=== PATIENT | male | born 1950 | race Two or more races ===

== ENCOUNTER 2018-01-09 06:32 | Inpatient (IN) | payer MEDICARE, MEDICAID ==
[2018-01-09] VITALS (7 sets, daily range): BP systolic 125–175; BP diastolic 65–85
[~2018-01-09] VITALS: Ht 172.7 cm; Wt 79.8 kg
--- NOTE | 2018-01-09 10:20 | NUR ---
REVENUE INVESTIGATOR OPENING NOTES. PT DIRECT ADMIT. PT A&0X3 BULGARIAN AND BURKINAN SPEAKING. PT WITH O2 VIA NC AT 2LPM WITH SAO2 OF 98%. PT LUNGS AUSCULTATED WITH LOWER LOBES DIMINISHED WITH RHONCHI. ORTHOPNEA NOTED AND SOB WITH EXERTION. PT REPORTS R LATERAL EPIGASTRIC PAIN, NON PLEURITIC, NO PAIN ON PALPATION. PT WITH IVC AT L AC INTACT AND SALINE FLUSH PATENT. PT SKIN INTACT. [place] DOCUMENTATION CHARTED. PT BED IN LOWEST LOCKED POSITION WITH HANDRAILSX2 AND CALL RICHARDSON WITHIN REACH. PT BRIEFED ON TODAY'S POC AND IS WITHOUT CONCERN OR COMPLAINT AT THIS TIME.
--- NOTE | 2018-01-09 11:00 | NUR ---
GRAIN OILSEED OR PASTURE FARM MANAGER NOTES. PT TO BRING IN MED RECON.
--- NOTE | 2018-01-09 11:00 | NUR ---
PERCIO MOON. MRSA SWAB COMPLETE.
[2018-01-09] MEDS ORDERED: FUROSEMIDE 40 MG/4 ML VIAL IV SCH (11:30)
[2018-01-09] MEDS ORDERED: hydrALAZINE HCL IV 20 MG VIAL IV PRN (12:00)
[2018-01-09] MEDS: PANTOPRAZOLE 40 MG TABLET.DR PO SCH (12:24)
[2018-01-09] MEDS: AMLODIPINE BESYLATE 5 MG TABLET PO SCH (12:24)
[2018-01-09] MEDS: NITROGLYCERIN 30 GM TUBE TP SCH ×2 (12:25→21:41)
[2018-01-09 12:57] LABS: BASOPHILS % (AUTO) 0.3 % (0.0-2.0); EOSINOPHILS % (AUTO) 1.1 % (0.0-6.0); HEMATOCRIT 39 % (39-51); HEMOGLOBIN 13.4 g/dL (13.5-17.5); LYMPHOCYTES # (AUTO) 2.5 /CMM (0.8-4.8); LYMPHOCYTES % (AUTO) 22.3 % (20.0-44.0); MEAN CORPUSCULAR HGB CONC 34 g/dl (31.0-36.0); MEAN CORPUSCULAR VOLUME 83 fL (80-96); MONOCYTES % (AUTO) 8.8 % (2.0-12.0); NEUTROPHILS # (AUTO) 7.5 /CMM (1.8-8.9); NEUTROPHILS % (AUTO) 67.5 % (43.0-81.0); PLATELET COUNT (AUTO) 172 /CMM (150-450); RDW COEFFICIENT OF VARIATION 13.7 (11.5-15.0); RED BLOOD CELL COUNT(AUTO) 4.73 MIL/uL (4.5-6.0); WHITE BLOOD COUNT (AUTO) 11.1 K/uL (4.3-11.0)
[2018-01-09 13:18] LABS: ALBUMIN 3.9 g/dL (3.4-5.0); BILIRUBIN,DIRECT 0.3 mg/dL (0.0-0.2); BILIRUBIN,TOTAL 1.3 mg/dL (0.2-1.0); CALCIUM, SERUM 8.6 mg/dL (8.5-10.1); CREATININE 1.2 mg/dL (0.6-1.3); MAGNESIUM 2.3 mg/dL (1.8-2.4); POTASSIUM 4.4 mmol/L (3.5-5.1); TOTAL PROTEIN, SERUM 7.4 g/dL (6.4-8.2)
[2018-01-09] MEDS: ALBUTEROL FS 2.5 MG/3 ML VIAL.NEB NEB SCH ×2 (13:30→19:58)
[2018-01-09 13:36] LABS: THYROID STIMULATING HORMONE 1.987 uIU/mL (0.358-3.74)
[2018-01-09] MEDS ORDERED: MONT10TA22 PO (13:59)
[2018-01-09] MEDS ORDERED: WARF3TAB29 PO (13:59)
[2018-01-09] MEDS ORDERED: AMIO200T4 PO (13:59)
[2018-01-09] MEDS ORDERED: CLOP75TA15 PO (13:59)
[2018-01-09] MEDS ORDERED: MELO-107 PO (13:59)
[2018-01-09] MEDS ORDERED: DIGO250T PO (13:59)
[2018-01-09] MEDS ORDERED: PROP20TA7 PO (13:59)
[2018-01-09] MEDS ORDERED: ROSU20TA PO (13:59)
[2018-01-09] MEDS ORDERED: ALBU18HF2 IH (13:59)
[2018-01-09] MEDS: ENOXAPARIN SODIUM 30 MG/0.3 ML DISP.SYRIN SQ SCH (14:45)
[2018-01-09 16:54] LABS: APPEARANCE,URINE CLEAR (CLEAR); BILIRUBIN,URINE NEGATIVE (NEGATIVE); BLOOD, URINE NEGATIVE Ery/uL (NEGATIVE); COLOR,URINE YELLOW (YELLOW); KETONES,URINE NEGATIVE (NEGATIVE); LEUKOCYTE ESTERASE ,URINE NEGATIVE (NEGATIVE); NITRITE, URINE NEGATIVE (NEGATIVE); PROTEIN,URINE NEGATIVE (NEGATIVE); UGLUCOSE NEGATIVE (NEGATIVE); UROBILINOGEN,URINE 0.2 EU/dL (0.2)
[2018-01-09] MEDS: DOCUSATE SODIUM 100 MG CAPSULE PO SCH (17:00)
--- NOTE | 2018-01-09 18:06 | NUR ---
SHEET METAL FABRICATOR CLOSING NOTES. PT A&0X3 RESTING WITH FAMILY AT BEDSIDE. TELE: AFIB WITH PVC AND OCCASIONAL BRADYCARDIA HR-[id number]. PT WITH O2 VIA NC AT 2LPM WITH SAO2 OF 98% PT REMAINS ORTHOPNEIC. PT DENIES PAIN AT THIS TIME. PT WITH IVC AT L AC INTACT AND SL. PT BED IN LOWEST LOCKED POSITION WITH HOB ELEVATED AND HANDRAILSX2 AND CALL RICHARDSON WITHIN REACH. ALL DAY NURSE DUTIES ATTENDED TO AND PT AND FAMILY ARE WITHOUT CONCERN OR COMPLAINT AT THIS TIME. WILL ENDORSE TO NIGHT NURSE FOR MELINA.
--- NOTE | 2018-01-09 19:40 | NUR ---
COMMODITY SUPERVISOR OPENING NOTES RECEIVED PT IN BED ALERT, AWAKE, VERBALLY RESPONSIVE. ON O2 VIA N/C AT 3L/MIN.RESPIRATIONS EVEN, UNLABORED, NO APPARENT DISTRESS NOTED. DENIES ANY PAIN OR DISCOMFORT AT THIS TIME. IV SITE RAC INTACT, PATENT. CALL LIGHT WITHIN REACH. ATTENDED ALL NEEDS. BED LOCKED IN LOWEST POSITION. WILL CONTINUE TO MONITOR ACCORDINGLY.
[2018-01-09] MEDS: POLYETHYLENE GLYCOL 3350 17 GM POWD.PACK PO SCH (21:44)
[2018-01-10] VITALS: BP_SYST 123; BP_SYST 124; BP_DIAS 55; BP_DIAS 56
[2018-01-10] MEDS: ALBUTEROL FS 2.5 MG/3 ML VIAL.NEB NEB SCH ×4 (01:28→20:11)
[2018-01-10 04:00] VITALS: BP_SYST 142; BP_SYST 152; BP_DIAS 66; BP_DIAS 68
--- NOTE | 2018-01-10 06:46 | NUR ---
TAX ASSESSOR CLOSING NOTES PT IN BED RESTING COMFORTABLY,ON O2 VIA N/C AT 3L/MIN, NO APPARENT DISTRESS NOTED. IV SITE LAC INTACT, PATENT. A FIB WITH PVC 33-62.CALL LIGHT WITHIN REACH. PT ALERT, AWAKE, VERBALLY RESPONSIVE, DENIES ANY PAIN OR DISCOMFORT AT THIS TIME, KEPT CLEAN AND COMFORTABLE, ATTENDED ALL NEEDS. WILL CONTINUE TO MONITOR ACCORDINGLY
[2018-01-10 06:51] LABS: ALANINE AMINOTRANSFERASE 45 U/L (12-78); ALBUMIN 3.6 g/dL (3.4-5.0); ALKALINE PHOSPHATASE 56 U/L (46-116); ASPARTATE AMINOTRANSFERASE 27 U/L (15-37); CALCIUM, SERUM 8.8 mg/dL (8.5-10.1); CARBON DIOXIDE 28 mmol/L (21-32); CHLORIDE 105 mmol/L (98-107); CREATININE 1.3 mg/dL (0.6-1.3); GLUCOSE 118 mg/dL (74-106); PHOSPHORUS 3.4 mg/dL (2.5-4.9); POTASSIUM 4.2 mmol/L (3.5-5.1); SODIUM SERUM 141 mmol/L (136-145); TOTAL PROTEIN, SERUM 7.1 g/dL (6.4-8.2); UREA NITROGEN, BLOOD 21 mg/dL (7-18)
[2018-01-10 06:59] LABS: TROPONIN I < 0.017 ng/mL (0.00-0.056)
[2018-01-10] MEDS: PANTOPRAZOLE 40 MG TABLET.DR PO SCH (07:05)
[2018-01-10 07:10] LABS: BASOPHILS % (AUTO) 0.4 % (0.0-2.0); EOSINOPHILS % (AUTO) 1.9 % (0.0-6.0); HEMATOCRIT 40 % (39-51); HEMOGLOBIN 13.3 g/dL (13.5-17.5); LYMPHOCYTES # (AUTO) 2.7 /CMM (0.8-4.8); LYMPHOCYTES % (AUTO) 28.9 % (20.0-44.0); MEAN CORPUSCULAR HGB CONC 34 g/dl (31.0-36.0); MEAN CORPUSCULAR VOLUME 85 fL (80-96); MONOCYTES # (AUTO) 1.1 /CMM (0.1-1.30); MONOCYTES % (AUTO) 12.4 % (2.0-12.0); NEUTROPHILS # (AUTO) 5.2 /CMM (1.8-8.9); NEUTROPHILS % (AUTO) 56.4 % (43.0-81.0); PLATELET COUNT (AUTO) 164 /CMM (150-450); RDW COEFFICIENT OF VARIATION 13.8 (11.5-15.0); RED BLOOD CELL COUNT(AUTO) 4.66 MIL/uL (4.5-6.0); WHITE BLOOD COUNT (AUTO) 9.2 K/uL (4.3-11.0)
--- NOTE | 2018-01-10 07:35 | NUR ---
Tele/RN - Assessment Patient is awake, A/O x 4, denies chest pain, on 3 lpm via NC, tele shows A.Fib, remain afebrile, not in any form of distress. Saline lock on the RAC is patent, intact, with no signs of infiltration. Skin is intact, patient independent with bed mobility. Placed on NPO after midnight for Lexiscan stress test today. Patient updated on treatment plan. Will continue to monitor closely.
[2018-01-10 08:00] VITALS: BP 152/68
[2018-01-10] MEDS ORDERED: REGADENOSON 0.4 MG/5 ML DISP.SYRIN IVP ONE ×2 (08:00→09:00)
[2018-01-10] MEDS: AMLODIPINE BESYLATE 5 MG TABLET PO SCH (09:59)
[2018-01-10] MEDS: DOCUSATE SODIUM 100 MG CAPSULE PO SCH ×2 (09:59→16:13)
[2018-01-10] MEDS: ASPIRIN 81 MG TAB.CHEW PO SCH (09:59)
[2018-01-10] MEDS: ENOXAPARIN SODIUM 30 MG/0.3 ML DISP.SYRIN SQ SCH (10:00)
[2018-01-10] MEDS: NITROGLYCERIN 30 GM TUBE TP SCH ×2 (10:01→21:36)
[2018-01-10] MEDS ORDERED: hydrALAZINE HCL 25 MG TABLET PO PRN (11:30)
[2018-01-10 16:05] VITALS: BP 164/68
--- NOTE | 2018-01-10 18:28 | NUR ---
Tele/RN - Notes Patient in no acute distress, remain afebrile, denies pain, on 2lpm via NC. Continue NS at 75 ml/hr to maintain hydration and IV Zosyn for UTI. All needs attended and met. Will continue with current medical management.
--- NOTE | 2018-01-10 19:40 | NUR ---
MS RN OPENING NOTES RECEIVED PT IN BED ALERT, AWAKE, VERBALLY RESPONSIVE, ON O2 VIA N/C AT 3L/MIN, NO APPARENT DISTRESS NOTED. DENIES ANY PAIN OR DISCOMFORT AT THIS TIME. IV SITE RAC INTACT, PATENT. CALL LIGHT WITHIN REACH. ATTENDED ALL NEEDS. BED LOCKED IN LOWEST POSITION. WILL CONTINUE TO MONITOR ACCORDINGLY.
[2018-01-10 20:00] VITALS: BP 172/87
[2018-01-10] MEDS: POLYETHYLENE GLYCOL 3350 17 GM POWD.PACK PO SCH (21:30)
[2018-01-10 22:00] VITALS: BP 144/68
[2018-01-11] MEDS: ALBUTEROL FS 2.5 MG/3 ML VIAL.NEB NEB SCH ×2 (02:11→07:17)
--- NOTE | 2018-01-11 06:26 | NUR ---
MS RN CLOSING NOTES PT IN BED, RESTING COMFORTABLY, ON O2 VIA N/C AT 3L/MIN, RESPIRATIONS EVEN, UNLABORED, NO APPARENT DISTRESS NOTED, IV SITE RT AC INTACT, PATENT. KEPT CLEAN AND COMFORTABLE. BED LOCKED IN LOWEST POSITION. ATTENDED ALL NEEDS. WILL ENDORSE TO DAY SHIFT FOR CONTINUITY OF CARE/
[2018-01-11 06:41] LABS: BASOPHILS % (AUTO) 0.4 % (0.0-2.0); EOSINOPHILS % (AUTO) 2.9 % (0.0-6.0); HEMATOCRIT 41 % (39-51); HEMOGLOBIN 13.7 g/dL (13.5-17.5); LYMPHOCYTES # (AUTO) 2.8 /CMM (0.8-4.8); LYMPHOCYTES % (AUTO) 28.2 % (20.0-44.0); MEAN CORPUSCULAR HGB CONC 33 g/dl (31.0-36.0); MEAN CORPUSCULAR VOLUME 85 fL (80-96); MONOCYTES # (AUTO) 1.1 /CMM (0.1-1.30); NEUTROPHILS # (AUTO) 5.8 /CMM (1.8-8.9); NEUTROPHILS % (AUTO) 57.5 % (43.0-81.0); PLATELET COUNT (AUTO) 192 /CMM (150-450); RDW COEFFICIENT OF VARIATION 13.9 (11.5-15.0); RED BLOOD CELL COUNT(AUTO) 4.83 MIL/uL (4.5-6.0); WHITE BLOOD COUNT (AUTO) 10.1 K/uL (4.3-11.0)
--- NOTE | 2018-01-11 07:20 | NUR ---
REPORT RECEIVED AT THE BEDSIDE. PATIENT IS RESTING COMFORTABLY IN BED. NO SOB OR DISTRESS NOTED AT THIS TIME. PATIENT DENIES PAIN. BED IN A LOW POSITION, CALL LIGHT WITHIN PATIENT REACH. WILL MONITOR.
[2018-01-11 07:25] LABS: CALCIUM, SERUM 8.6 mg/dL (8.5-10.1); CREATININE 1.1 mg/dL (0.6-1.3); PHOSPHORUS 3.3 mg/dL (2.5-4.9)
[2018-01-11 08:00] VITALS: BP 116/69
[2018-01-11] MEDS: NITROGLYCERIN 30 GM TUBE TP SCH (08:11)
[2018-01-11] MEDS: AMLODIPINE BESYLATE 5 MG TABLET PO SCH (08:11)
[2018-01-11] MEDS: ASPIRIN 81 MG TAB.CHEW PO SCH (08:11)
[2018-01-11] MEDS: PANTOPRAZOLE 40 MG TABLET.DR PO SCH (08:11)
[2018-01-11] MEDS: DOCUSATE SODIUM 100 MG CAPSULE PO SCH (08:11)
[2018-01-11 08:12] VITALS: BP 116/69
[2018-01-11] MEDS: ENOXAPARIN SODIUM 30 MG/0.3 ML DISP.SYRIN SQ SCH (08:12)
[2018-01-11] MEDS ORDERED: FUROSEMIDE 20 MG TABLET PO SCH (09:00)
[2018-01-11] MEDS ORDERED: VALSARTAN 80 MG TABLET PO SCH (09:00)
--- NOTE | 2018-01-11 12:00 | NUR ---
RN NOTES RECEIVED PATIENT FROM EMANUEL MOON, PATIENT IS READY FOR DISCHARGE. NO DISTRESS NOTED.
--- NOTE | 2018-01-11 12:48 | NUR ---
RN NOTES PATIENT A/OX4, RECEIVED DISCHARGE INSTRUCTIONS AND VERBALIZED UNDERSTANDING. DENIES PAIN OR DISCOMFORT, DISCHARGE PAPERWORKS SIGNED. SKIN ASSESSMENT COMPLETED, SKIN DRY AND INTACT. PIV REMOVED ON RIGHT AC. BELONGINGS RECONCILED AND COMPLETE, ALL NEEDS ATTENDED AND MET, PATIENT IS WAITING FOR TO PICK HIM UP.
--- NOTE | 2018-01-11 13:10 | NUR ---
RN NOTES PATIENT LEFT THE FACILITY IN NO DISTRESS, ACCOMPANIED BY . ALL BELONGINGS COMPLETED AND BROUGHT HOME.
== END 2018-01-11 13:10 | disposition home or self-care (01) | DRG 243 ==
LOC: TELE 09:50 → MED 01-10 11:16
PROVIDERS: ADMIT Internal Medicine; ATTEND Internal Medicine
DX: K21.9 Gastro-esophageal reflux disease without esophagitis (principal); I50.33 Acute on chronic diastolic (congestive) heart failure; I25.10 Atherosclerotic heart disease of native coronary artery without angina pectoris; I11.0 Hypertensive heart disease with heart failure; I48.2 Chronic atrial fibrillation; Z95.1 Presence of aortocoronary bypass graft; E03.9 Hypothyroidism, unspecified; E78.5 Hyperlipidemia, unspecified; I70.90 Unspecified atherosclerosis; R91.8 Other nonspecific abnormal finding of lung field; I34.0 Nonrheumatic mitral (valve) insufficiency; I35.1 Nonrheumatic aortic (valve) insufficiency
CPT/HCPCS: 36415; 71045-TC; 71250-TC; 80048-TC; 80053-TC; 80061-TC; 80076-TC; 81000-TC; 82550-TC; 82746; 83540-TC; 83605-TC; 83735-TC; 84100-TC; 84443-TC; 84484-TC; 85025-TC; 87081-TC; 93307-TC; 94799-TC; A9502; J0360; J1650; J1940; J2785; Z7610

== ENCOUNTER 2018-01-16 12:33 | Outpatient (CLI) | payer MEDICARE, MEDICAID ==
[~2018-01-16 12:33] MED LIST: ALBU18HF2 IH; AMIO200T4 PO; CLOP75TA15 PO; DIGO250T PO; MELO-107 PO; MONT10TA22 PO; PROP20TA7 PO; ROSU20TA PO; WARF3TAB29 PO
[2018-01-16 12:41] VITALS: BP 136/73
== END 2018-01-16 23:59 | disposition home or self-care (01) ==
LOC: MSC 12:33
PROVIDERS: ATTEND Internal Medicine
DX: I11.0 Hypertensive heart disease with heart failure (principal); I50.9 Heart failure, unspecified; I25.10 Atherosclerotic heart disease of native coronary artery without angina pectoris; Z95.1 Presence of aortocoronary bypass graft; Z95.5 Presence of coronary angioplasty implant and graft; J90 Pleural effusion, not elsewhere classified; E78.5 Hyperlipidemia, unspecified; I48.91 Unspecified atrial fibrillation; Z79.01 Long term (current) use of anticoagulants